=== PATIENT | male | born 1985 | race Caucasian/White ===

== ENCOUNTER 2018-11-09 11:42 | Inpatient (IN) ==
[2018-11-09] MEDS ORDERED: Vancomycin Inj 1,000 MG in Sodium Chlor 0.9% Inj 250 ML IV.SIG ONE (12:54)
[2018-11-09] MEDS ORDERED: Sod Chloride 0.9% Inj 1,000 ML IV.CONT SCH (13:00)
--- NOTE | 2018-11-09 13:03 | ED ---
HPI General Chief complaint: Dental/Oral Stated complaint: PHY sent/Oral infection Time Seen by Provider: 11/09/18 12:40 Source: patient Mode of arrival: ambulatory Limitations: no limitations History of Present Illness HPI Narrative: 33-year-old male complains of pain and swelling on the right side jaw and the right-sided neck. Patient status post wisdom tooth extraction on October [address] Rodriguez. Patient states that he has infection postop. Patient was put on amoxicillin originally and changed to Flagyl and Augmentin. Patient states that he has increasing pain and swelling despite the antibiotic. Patient was seen by oral surgeon and I&D was done with packing in place. Packing was removed this morning however patient had persistent problem with pain swelling on the right-sided neck and right-sided jaw. Patient was advised to go to emergency room to be admitted for IV antibiotic and CT scan of the neck. Patient states that he has intermittent low-grade fever at home. Patient has history of borderline hypertension and hyperlipidemia which is in diet controlled. Patient states that he has trouble swallowing this morning. Patient denies any chest pain or shortness of breath. Onset (ago): day(s) Duration: worsening Severity: moderate Relieving factors: nothing Exacerbating factors: nothing Associated symptoms: Reports fever and pain with swallowing Treatment prior to arrival: Reports other (Oral antibiotic) Related Data Home Medications Medication Instructions Recorded Confirmed No Known Home Medications 11/09/18 11/09/18 Allergies Allergy/AdvReac Type Severity Reaction Status Date / Time No Known Allergies Allergy Verified 11/09/18 11:43 Review of Systems ROS: all other systems reviewed are negative [facility] Medical History Medical History Hydrocele (Acute) Patient denies medical problems (Acute) Surgical History Surgical History H/O inguinal hernia repair (Acute) Social History Social History Substance History: Active Abuse Smoking Status: Never smoker How Often Do You Have a Drink Containing Alcohol: Never Recent Travel in [facility] within the Last 8 Weeks: No Recent Out of Country Travel within the Last 8 Weeks: No Substance Abuse Detail Marijuana: Substance Use Status: Active Route Used Substance Abuse: Inhalation Immunization History Tetanus Immunization: >5 Years Exam Narrative Exam Narrative: GENERAL: Well-nourished, well-developed patient. SKIN: Focused skin assessment warm/dry. HEAD: Normocephalic. EYES: No scleral icterus. No injection or drainage. NECK: Soft tissue swelling tenderness with some drainage from the right-sided neck. Mild soft tissue swelling tenderness of the right angle of the mandible. CARDIOVASCULAR: Regular rate and rhythm without murmurs, gallops, or rubs. RESPIRATORY: Breath sounds equal bilaterally. No accessory muscle use. GASTROINTESTINAL: Abdomen soft, non-tender, nondistended. MUSCULOSKELETAL: No cyanosis, or edema. BACK: Nontender without obvious deformity. No CVA tenderness. Course Initial Documented Vital Signs Temperature 96.5 F L 11/09/18 11:43 Pulse Rate 65 11/09/18 11:43 Respiratory Rate 14 11/09/18 11:43 Blood Pressure 176/81 H 11/09/18 11:43 Pulse Oximetry 97 11/09/18 11:43 Last Documented Vital Signs Temperature 96.5 F L 11/09/18 11:43 Pulse Rate 61 11/09/18 12:04 Respiratory Rate 14 11/09/18 12:04 Blood Pressure 142/91 H 11/09/18 12:04 Pulse Oximetry 96 11/09/18 12:04 Medical Decision Making MDM Narrative Medical decision making narrative: 33-year-old male with drainage and soft tissue swelling tenderness right neck. Status post wisdom tooth removal with subsequent postop infection 2 weeks ago. Vancomycin 1 g IV given. Normal saline solution 125 cc an hour. Medical Screen Exam Complete: Yes Emergency Medical Condition: Yes Lab Data Lab results reviewed: Yes I reviewed the patient's lab results. Result diagrams: 11/09/18 12:55 11/09/18 12:55 Lab Results 11/09/18 11/09/18 11/09/18 Range/Units 12:55 12:55 12:55 WBC 11.8 H (4.0-11.0) th/mm3 RBC 4.78 (4.50-5.90) mil/mm3 Hgb 15.4 (13.0-17.0) gm/dL Hct 44.8 (39.0-51.0) % MCV 93.7 (80.0-100.0) fL MCH 32.3 (27.0-34.0) pg MCHC 34.4 (32.0-36.0) % RDW 12.6 (11.6-17.2) % Plt Count 308 (150-450) th/mm3 MPV 8.3 (7.0-11.0) fL Neut % (Auto) 80.9 H (16.0-70.0) % Lymph % (Auto) 11.7 (9.0-44.0) % Jack % (Auto) 6.0 (0.0-8.0) % Eos % (Auto) 1.0 (0.0-4.0) % Baso % (Auto) 0.4 (0.0-2.0) % Neut # (Auto) 9.6 H (1.8-7.7) th/mm3 Lymph # (Auto) 1.4 (1.0-4.8) th/mm3 Jack # (Auto) 0.7 (0.0-0.9) th/mm3 Eos # (Auto) 0.1 (0.0-0.4) th/mm3 Baso # (Auto) 0.1 (0.0-0.2) th/mm3 WBC Differential . Differential Comment Auto diff final PT 11.7 H (9.8-11.6) sec INR 1.2 Ratio Sodium 138 (136-145) meq/L Potassium 3.3 L (3.5-5.1) meq/L Chloride 103 (98-107) meq/L Carbon Dioxide 28.4 (21.0-32.0) meq/L Anion Gap 7 (5-15) meq/L BUN 9 (7-18) mg/dL Creatinine 0.78 (0.60-1.30) mg/dL Estimated GFR Greater than 89 (>89) mL/min Random Glucose 99 (74-106) mg/dL Lactic Acid (0.4-2.0) mmol/L Calcium 8.6 (8.5-10.1) mg/dL Total Bilirubin 0.8 (0.2-1.0) mg/dL AST 17 (15-37) U/L ALT 24 (12-78) U/L Alkaline Phosphatase 103 (45-117) U/L Total Protein 8.0 (6.4-8.2) g/dL Albumin 4.0 (3.4-5.0) g/dL 12/26/18 Range/Units 12:55 WBC (4.0-11.0) th/mm3 RBC (4.50-5.90) mil/mm3 Hgb (13.0-17.0) gm/dL Hct (39.0-51.0) % MCV (80.0-100.0) fL MCH (27.0-34.0) pg MCHC (32.0-36.0) % RDW (11.6-17.2) % Plt Count (150-450) th/mm3 MPV (7.0-11.0) fL Neut % (Auto) (16.0-70.0) % Lymph % (Auto) (9.0-44.0) % Jack % (Auto) (0.0-8.0) % Eos % (Auto) (0.0-4.0) % Baso % (Auto) (0.0-2.0) % Neut # (Auto) (1.8-7.7) th/mm3 Lymph # (Auto) (1.0-4.8) th/mm3 Jack # (Auto) (0.0-0.9) th/mm3 Eos # (Auto) (0.0-0.4) th/mm3 Baso # (Auto) (0.0-0.2) th/mm3 WBC Differential Differential Comment PT (9.8-11.6) sec INR Ratio Sodium (136-145) meq/L Potassium (3.5-5.1) meq/L Chloride (98-107) meq/L Carbon Dioxide (21.0-32.0) meq/L Anion Gap (5-15) meq/L BUN (7-18) mg/dL Creatinine (0.60-1.30) mg/dL Estimated GFR (>89) mL/min Random Glucose (74-106) mg/dL Lactic Acid 0.8 (0.4-2.0) mmol/L Calcium (8.5-10.1) mg/dL Total Bilirubin (0.2-1.0) mg/dL AST (15-37) U/L ALT (12-78) U/L Alkaline Phosphatase (45-117) U/L Total Protein (6.4-8.2) g/dL Albumin (3.4-5.0) g/dL Imaging Data Attestation: I personally reviewed and interpreted this imaging study as follows : Radiologist's impression: Soft Tissue Neck CT 11/09/18 12:50 CONCLUSION: 1. There is abnormal soft tissue swelling with a focal area of inflammatory tissue suggestive of phlegmon with droplets of air just below the angle of the right mandible consistent with a developing soft tissue abscess. This area measures 2.6 x 2.6 cm. There appears to be a small crack in the posterior cortex of the angle of the mandible on the right side best seen on the sagittal images. Discharge Plan Discharge Disposition Patient Disposition: ED Admit(ED Internal Use Only) Discharge Details Diagnosis: Abscess of neck Physicians Team ED Provider: Deion Clarke Primary Care Provider: Jo Ann Cedeño Rxs /Orders / Referrals /Forms Prescriptions: No Action No Known Home Medications RF: 0 Status ED Status: With Doctor
[2018-11-09 13:08] LABS: Baso # (Auto) 0.1 th/mm3 (0.0-0.2); Baso % (Auto) 0.4 % (0.0-2.0); Eos # (Auto) 0.1 th/mm3 (0.0-0.4); Hematocrit 44.8 % (39.0-51.0); Hemoglobin 15.4 gm/dL (13.0-17.0); Lymph # (Auto) 1.4 th/mm3 (1.0-4.8); Lymph % (Auto) 11.7 % (9.0-44.0); Mean Corpuscular HGB Conc 34.4 % (32.0-36.0); Mean Corpuscular Hemoglobin 32.3 pg (27.0-34.0); Mean Corpuscular Volume 93.7 fL (80.0-100.0); Mean Platelet Volume 8.3 fL (7.0-11.0); Mono # (Auto) 0.7 th/mm3 (0.0-0.9); Neut # (Auto) 9.6 th/mm3 (1.8-7.7); Neut % (Auto) 80.9 % (16.0-70.0); Platelet Count 308 th/mm3 (150-450); Red Blood Count 4.78 mil/mm3 (4.50-5.90); Red Cell Distribution Width 12.6 % (11.6-17.2); White Blood Count 11.8 th/mm3 (4.0-11.0)
[2018-11-09 13:19] LABS: INR 1.2 Ratio; Prothrombin Time 11.7 sec (9.8-11.6)
[2018-11-09 13:25] LABS: Alanine Aminotransferase 24 U/L (12-78); Anion Gap 7 meq/L (5-15); Aspartate Aminotransferase 17 U/L (15-37); Blood Urea Nitrogen 9 mg/dL (7-18); Calcium 8.6 mg/dL (8.5-10.1); Carbon Dioxide 28.4 meq/L (21.0-32.0); Chloride 103 meq/L (98-107); Glomerular Filtration Rate Greater Than 89 mL/min (>89); Glucose,Random 99 mg/dL (74-106); Potassium 3.3 meq/L (3.5-5.1); Sodium 138 meq/L (136-145)
[2018-11-09 13:27] LABS: Alkaline Phosphatase 103 U/L (45-117)
--- NOTE | 2018-11-09 14:12 | CT ---
EXAM DATE: 11/09/2018 2:02 PM EST AGE/SEX: 33 years / Male INDICATIONS: Abscess of neck. Lower wisdom teeth removed. CLINICAL DATA: This is the patient's initial encounter. Patient reports that signs and symptoms have been present for 1 day and indicates a pain score of 8/10. MEDICAL/SURGICAL HISTORY: None. . hernia repair RADIATION DOSE: 11.19 CTDI (mGy) COMPARISON: No prior exams available for comparison. TECHNIQUE: Helical acquisition was performed using a multirow detector CT scanner during the adminis tration of 68 ml Omnipaque 350 (iohexol) nonionic water-soluble contrast as a single exam dose. Usi ng automated exposure control and adjustment of the mA and/or kV according to patient size, radiation dose was kept as low as reasonably achievable to obtain optimal diagnostic quality images. DICOM fo rmat image data is available electronically for review and comparison. FINDINGS: Patient had a lower wisdom tooth removed. On today's examination there is focal soft tissue swelling just inferior to the angle of the mandible on the right side. Along with a focal soft tissue swelling there are several droplets of air within the soft tissues just below the angle of the right mandible . The soft tissue swelling phlegmon measures approximately 2.6 x 2.6 cm. On the sagittal images throu gh the angle of the right mandible there appears to be a small cortical fracture through the posterio r wall of the mandible where it appears the tube is been removed. There is nonspecific edema in the s ubcutaneous soft tissues along the right side of the face. The tonsillar pillars appear to be symmetr ic bilaterally. No definite cervical adenopathy is demonstrated. CONCLUSION: 1. There is abnormal soft tissue swelling with a focal area of inflammatory tissue suggestive of phl egmon with droplets of air just below the angle of the right mandible consistent with a developing so ft tissue abscess. This area measures 2.6 x 2.6 cm. There appears to be a small crack in the posterio r cortex of the angle of the mandible on the right side best seen on the sagittal images. Electronically signed by: Leonardo Yang MD Board Certified Radiologist 11/09/2018 2:11 PM EST
[2018-11-09] MEDS ORDERED: Ampicillin/Sulbactam Inj 3 GM in Sodium Chloride 0.9% Inj 100 ML IV.SIG ONE (14:41)
--- NOTE | 2018-11-09 15:27 | P.HP ---
History of Present Illness Service: [facility] hospitalist service Primary Care Physician: Jo Ann Cedeño MD Chief Complaint: Right submandibular pain and swelling History of Present Illness: Patient is a 33-year-old male with no significant past medical history except for hyperlipidemia on diet who was sent here by oral maxillofacial surgery for right jaw swelling and pain. History of present illness started about 10-12 days ago when patient had wisdom tooth removal on both sides on October 28. Patient was sent home on ibuprofen and hydrocodone with amoxicillin and some oral rinse. 3-4 days later developed low-grade fever. Left side healed well however the right side with persistent swelling and pain. On follow-up with Dr. Rodriguez office I&D done and a drain was placed on the and was started on p.o. Augmentin and Flagyl. 2 days later on follow-up with persistent swelling and this morning on ff up - was sent here for further exploration and possible I &D. Patient states limited oral opening low-grade fever no chills. Past medical history was told that he has hyperlipidemia and was placed on diet. On no meds Social history smokes recreational marijuana. Very occasional alcohol use denies any tobacco use. Family history positive for CAD, and aunt has history of breast cancer. Surgical history bilateral inguinal hernia surgery at 10 years of age. Inpatient Certification: I certify that the inpatient services were ordered in accordance with Medicare regulations governing the order. This includes certification that hospital inpatient services are reasonable and necessary and in the case of services not specified as inpatient-only under 42 CFR 419.22(n), that they are appropriately provided as inpatient services in accordance to with the 2-midnight benchmark under 43 CFR 412.3(e) Estimated Total Length of Stay (Days): 3 Plans for Post Hospital Care: Not yet determined Review of Systems Prior to this episode no history of weight loss no history of chest pain or shortness of breath no history of cough No history of GI bleed melena or hematochezia no urinary symptoms no leg swelling PMFSH - History History Provided By: Patient - Medical History Medical History: Medical History (Last Reviewed 11/09/18 @ 12:59 by Deion Clarke MD) Hydrocele Patient denies medical problems - Surgical History Surgical History: Surgical History (Last Reviewed 11/09/18 @ 12:59 by Deion Clarke MD) H/O inguinal hernia repair - Tobacco History Smoking Status: Never smoker - Alcohol History How Often Do You Have a Drink Containing Alcohol: Never - Substance Use History Substance History: Active Abuse - Substance Use Type Marijuana Status: Active Route Used: Inhalation - Travel History Recent Travel in the [place] Within the Last 8 Weeks: No Recent Travel Out of the Country Within the Last 8 Weeks: No - Immunization History Tetanus Immunization: >5 Years Medications and Allergies Active Medications: Active Medications Sodium Chloride (Ns Inj) 1,000 mls @ 125 mls/hr IV.CONT .Q8H MASHA Last Admin: 11/09/18 13:16 Dose: 125 mls/hr Allergies Allergy/AdvReac Type Severity Reaction Status Date / Time No Known Allergies Allergy Verified 11/09/18 11:43 Exam Vital signs: Vital Signs 11/09/18 11:43 11/09/18 12:04 Temperature 96.5 F L Pulse Rate 65 61 Respiratory Rate 14 14 Blood Pressure 176/81 H 142/91 H Pulse Oximetry 97 96 Narrative: Awake alert oriented x3 not in any distress HEENT exam anicteric sclera Limited oral opening. Exam of the gingiva no swelling or redness. neck was supple Positive right submandibular swelling with slight indurated mass likely an abscess. Lungs no rales no wheezes Regular rhythm Abdomen soft nontender extremities no edema neurologic exam nonfocal Results - Labs CBC & Chem 7: 11/11/18 06:05 11/10/18 03:47 Labs: Laboratory Results - last 24 hr 11/09/18 11/09/18 11/09/18 12:55 12:55 12:55 WBC 11.8 H RBC 4.78 Hgb 15.4 Hct 44.8 MCV 93.7 MCH 32.3 MCHC 34.4 RDW 12.6 Plt Count 308 MPV 8.3 Neut % (Auto) 80.9 H Lymph % (Auto) 11.7 [place] % (Auto) 6.0 Eos % (Auto) 1.0 Baso % (Auto) 0.4 Neut # (Auto) 9.6 H Lymph # (Auto) 1.4 [place] # (Auto) 0.7 Eos # (Auto) 0.1 Baso # (Auto) 0.1 WBC Differential . Differential Comment Auto diff final PT 11.7 H INR 1.2 Sodium 138 Potassium 3.3 L Chloride 103 Carbon Dioxide 28.4 Anion Gap 7 BUN 9 Creatinine 0.78 Estimated GFR Greater than 89 Random Glucose 99 Lactic Acid Calcium 8.6 Total Bilirubin 0.8 AST 17 ALT 24 Alkaline Phosphatase 103 Total Protein 8.0 Albumin 4.0 11/09/18 12:55 WBC RBC Hgb Hct MCV MCH MCHC RDW Plt Count MPV Neut % (Auto) Lymph % (Auto) [place] % (Auto) Eos % (Auto) Baso % (Auto) Neut # (Auto) Lymph # (Auto) [place] # (Auto) Eos # (Auto) Baso # (Auto) WBC Differential Differential Comment PT INR Sodium Potassium Chloride Carbon Dioxide Anion Gap BUN Creatinine Estimated GFR Random Glucose Lactic Acid 0.8 Calcium Total Bilirubin AST ALT Alkaline Phosphatase Total Protein Albumin - Imaging Impressions Soft Tissue Neck CT 11/09/18 12:50 CONCLUSION: 1. There is abnormal soft tissue swelling with a focal area of inflammatory tissue suggestive of phlegmon with droplets of air just below the angle of the right mandible consistent with a developing soft tissue abscess. This area measures 2.6 x 2.6 cm. There appears to be a small crack in the posterior cortex of the angle of the mandible on the right side best seen on the sagittal images. Caprini VTE Risk Assessment Caprini VTE Risk Assessment: No/Low Risk (score <= 1) VTE Pharmacological Exception Reason: Documented (going for surgery) Caprini Risk Assessment Model: Point Value = 1 Point Value = 2 Point Value = 3 Point Value = 5 Age 41-60 Minor surgery BMI > 25 kg/m2 Swollen legs Varicose veins or History of unexplained or recurrent spontaneous Oral contraceptives or hormone replacement Sepsis (< 1 month) Serious lung disease, including pneumonia (< 1 month) Abnormal pulmonary function Acute myocardial infarction Congestive heart failure (< 1 month) History of inflammatory bowel disease Medical patient at bed rest Age 61-74 Arthroscopic surgery Major open surgery (> 45 min) Laparoscopic surgery (> 45 min) Malignancy Confined to bed (> 72 hours) Immobilizing plaster cast Central venous access Age >= 75 History of VTE Family history of VTE Factor V Leiden Prothrombin [id number] Lupus anticoagulant Anticardiolipin antibodies Elevated serum homocysteine Heparin-induced thrombocytopenia Other congenital or acquired thrombophilia Stroke (< 1 month) Elective arthroplasty Hip, pelvis, or leg fracture Acute spinal cord injury (< 1 month) Prophylaxis Regimen: Total Risk Factor Score Risk Level Prophylaxis Regimen 0-1 Low Early ambulation 2 Moderate Order ONE of the following: *Sequential Compression Device (SCD) *Heparin 5000 units SQ BID 3-4 Higher Order ONE of the following medications: *Heparin 5000 units SQ TID *Enoxaparin/Lovenox 40 mg SQ daily (WT < 150 kg, CrCl > 30 mL/min) *Enoxaparin/Lovenox 30 mg SQ daily (WT < 150 kg, CrCl > 10-29 mL/min) *Enoxaparin/Lovenox 30 mg SQ BID (WT < 150 kg, CrCl > 30 mL/min) AND/OR *Sequential Compression Device (SCD) 5 or more Highest Order ONE of the following medications: *Heparin 5000 units SQ TID (Preferred with Epidurals) *Enoxaparin/Lovenox 40 mg SQ daily (WT < 150 kg, CrCl > 30 mL/min) *Enoxaparin/Lovenox 30 mg SQ daily (WT < 150 kg, CrCl > 10-29 mL/min) *Enoxaparin/Lovenox 30 mg SQ BID (WT < 150 kg, CrCl > 30 mL/min) AND *Sequential Compression Device (SCD) Assessment and Plan - Plan 33-year-old male with no significant past medical history presented with Right submandibular abscess status post wisdom tooth removal about 10 days ago. Status post I&D as outpatient 11/05, 11/07- in clinic, failed OP antibiotics - was given IV vancomycin and IV Unasyn one dose here at ER - Oral surgery consult and will take him to surgery this afternoon - Zofran as needed for nausea. - Continue IV Unasyn - PRN pain meds postop IV per oral surgery Hypokalemia on BMP - Incorporate KCL in IVF - BMP in am History of hypertension borderline. Diet controlled. Monitor History of hyperlipidemia per patient diet controlled. TEDs/early ambulation
[2018-11-09] MEDS ORDERED: Metoprolol Tartrate 25 MG Tablet PO ONE (16:45)
[2018-11-09] MEDS ORDERED: Chlorhexidine Gluconate 2% 1 Pack (2 Cloths) TOPICAL ONE (16:45)
--- NOTE | 2018-11-09 16:52 | P.CON ---
History of Present Illness Service: Oral & Maxillofacial Surgery Consult date: 11/09/18 Requesting Physician: Deion Clarke Reason for Consult: Right submandibular abscess Primary Care Provider: Jo Ann Cedeño MD Chief Complaint: Right submandibular pain and swelling History of Present Illness: 33 y/o M with no significant medical history who presents with persistent purulence from #32 extraction site. Third molars were extracted on 10/28/18 and patient developed swelling in the right submandibular region a week later. He underwent multiple incision and drainage procedures in the office setting under local anesthesia and has continued to have persistent pain and purulence from # 32 extraction site. He reports this morning he woke up and had dysphagia and increased swelling from the right mandible. He denied any purulent output from the drains in his right neck. The drains were subsequently removed in the office setting and the patient was noted to have continued purulence in #32 extraction site. He experienced pain on palpation along the inferior mandibular border. He was subsequently referred to the [facility] for a CT of the neck to visualize the location of any further fluid collections with the need for IV antibiotic therapy and likely incision and drainage under general anesthesia. Review of Systems Constitutional: Reports lack of energy, Reports malaise Eyes: Denies change in vision Ears, Nose, Mouth, and Throat: Reports dental pain, Reports difficulty swallowing, Reports facial pain, Reports neck pain, Reports pain with swallowing Cardiovascular: Denies chest pain Respiratory: Denies shortness of breath, Denies wheezing Gastrointestinal: Reports pain with swallowing, Denies abdominal pain Genitourinary: Denies difficulty urinating, Denies painful urination Comments: Dark urine Musculoskeletal: Denies abnormal walking PMFSH - History History Provided By: Patient - Medical History Medical History: Medical History (Last Reviewed 11/09/18 @ 12:59 by Deion Clarke MD) Hydrocele Patient denies medical problems - Surgical History Surgical History: Surgical History (Last Reviewed 11/09/18 @ 12:59 by Deion Clarke MD) H/O inguinal hernia repair - Tobacco History Smoking Status: Never smoker - Alcohol History How Often Do You Have a Drink Containing Alcohol: Never - Substance Use History Substance History: Active Abuse - Substance Use Type Marijuana Status: Active Route Used: Inhalation - Travel History Recent Travel in the [place] Within the Last 8 Weeks: No Recent Travel Out of the Country Within the Last 8 Weeks: No - Immunization History Tetanus Immunization: >5 Years Medications and Allergies Active Medications: Active Medications Potassium Chloride 30 meq/ (Dextrose/Sodium Chloride) 1,015 mls @ 100 mls/hr IV.CONT .Q10H9M [facility] Ampicillin Sodium/Sulbactam (Sodium 3 gm/ Sodium Chloride) 100 mls @ 200 mls/ hr IV.SIG Q6H [facility] Ondansetron HCl (Zofran Inj) 4 mg IV.PUSH Q6H PRN PRN Reason: nausea Last Admin: 11/09/18 16:13 Dose: 4 mg Allergies Allergy/AdvReac Type Severity Reaction Status Date / Time No Known Allergies Allergy Verified 11/09/18 11:43 Home Medications Medication Instructions Recorded Confirmed Type No Known Home Medications 11/09/18 11/09/18 History Physical Exam Vital signs: Vital Signs 11/09/18 11:43 11/09/18 12:04 11/09/18 16:00 Temperature 96.5 F L 99.0 F Pulse Rate 65 61 80 Respiratory Rate 14 14 20 Blood Pressure 176/81 H 142/91 H 130/89 Pulse Oximetry 97 96 100 Intake & Output 11/08/18 11/09/18 11/09/18 18:59 06:59 18:59 Intake Total 450 / 450 Balance 450 / 450 Weight 78.471 kg Intake: IV 450 / 450 NS Inj 1,000 ML @ 125 mls/hr IV 100 / 100 .CONT .Q8H [facility] Rx#:[id number] Unasyn Inj 3 GM In NS Inj 100 100 / 100 ML @ 200 mls/hr IV.SIG ONCE ONE Rx#:[id number] Vancomycin Inj 1,000 MG In NS 250 / 250 Inj 250 ML @ 250 mls/hr IV.SIG ONCE ONE Rx#:[id number] Other: Weight On Admission 78.471 kg Narrative: General: Well-developed, appears uncomfortable. Neurological: Alert and oriented to person, place, and time. HEENT: Head/Face: Mild right submandibular edema, tender to palpation, no overlying erythema of the skin. Multiple incision sites in the right neck. LAURA > 4cm Eyes: EOMI Oral Cavity/Oropharynx: Mucosa pink and well hydrated. Good oral hygiene. Sutures in place in right mandible and dissolving. Floor of mouth soft. Purulence in extraction site #32. Neck: Tenderness to palpation of the right submandibular region Cardiovascular: Regular rate. Pulmonary: Normal work of breathing on room air. Abdomen: Soft, non-tender. Musculoskeletal: No joint tenderness, deformity, effusions. Full range of motion in shoulder, elbow, hip knee, ankle, hands and feet. Extremities: Warm, well perfused. l Results - Labs CBC & Chem 7: 11/09/18 12:55 11/09/18 12:55 Labs: Laboratory Results - last 24 hr 11/09/18 11/09/18 11/09/18 12:55 12:55 12:55 WBC 11.8 H RBC 4.78 Hgb 15.4 Hct 44.8 MCV 93.7 MCH 32.3 MCHC 34.4 RDW 12.6 Plt Count 308 MPV 8.3 Neut % (Auto) 80.9 H Lymph % (Auto) 11.7 [place] % (Auto) 6.0 Eos % (Auto) 1.0 Baso % (Auto) 0.4 Neut # (Auto) 9.6 H Lymph # (Auto) 1.4 [place] # (Auto) 0.7 Eos # (Auto) 0.1 Baso # (Auto) 0.1 WBC Differential . Differential Comment Auto diff final PT 11.7 H INR 1.2 Sodium 138 Potassium 3.3 L Chloride 103 Carbon Dioxide 28.4 Anion Gap 7 BUN 9 Creatinine 0.78 Estimated GFR Greater than 89 Random Glucose 99 Lactic Acid Calcium 8.6 Total Bilirubin 0.8 AST 17 ALT 24 Alkaline Phosphatase 103 Total Protein 8.0 Albumin 4.0 11/09/18 12:55 WBC RBC Hgb Hct MCV MCH MCHC RDW Plt Count MPV Neut % (Auto) Lymph % (Auto) [place] % (Auto) Eos % (Auto) Baso % (Auto) Neut # (Auto) Lymph # (Auto) [place] # (Auto) Eos # (Auto) Baso # (Auto) WBC Differential Differential Comment PT INR Sodium Potassium Chloride Carbon Dioxide Anion Gap BUN Creatinine Estimated GFR Random Glucose Lactic Acid 0.8 Calcium Total Bilirubin AST ALT Alkaline Phosphatase Total Protein Albumin - Imaging Impressions Soft Tissue Neck CT 11/09/18 12:50 CONCLUSION: 1. There is abnormal soft tissue swelling with a focal area of inflammatory tissue suggestive of phlegmon with droplets of air just below the angle of the right mandible consistent with a developing soft tissue abscess. This area measures 2.6 x 2.6 cm. There appears to be a small crack in the posterior cortex of the angle of the mandible on the right side best seen on the sagittal images. Assessment and Plan - Assessment (1) Submandibular abscess Code(s): K12.2 - Cellulitis and abscess of mouth Status: Acute - Plan 30 y/o M with a right submandibular abscess s/p extraction of third molars on . Patient would benefit from incision and drainage of the right submandibular space and continued antibiotic IV therapy. Risks and benefits discussed with patient including pain, swelling, bleeding, nerve/vessel injury, continued infection. Informed consent obtained. Recommendations: - Clear liquid diet after OR - Agree with continuing Unasyn 3g IV every 6 hours - We will plan to follow-up with cultures in OR - We will plan to keep drains in place until no further purulence is appreciated - Daily CBC and CRP - Keep HOB elevated - Pain meds per medicine service Thank you for assisting in the care of this patient. Please do not hesitate to contact me with any questions or concerns at [phone]. Carrington Mcmillan DDS,
[2018-11-09] MEDS ORDERED: Artificial Tears Opth Oint 3.5 GM Tube ONE (16:53)
[2018-11-09] MEDS ORDERED: fentaNYL Citrate Inj 100 MCG/2 ML Ampul ONE (16:59)
[2018-11-09] MEDS ORDERED: Sodium Chlor 0.9% Inj 500 ML IV.SIG SCH (17:00)
[2018-11-09] MEDS ORDERED: Lidocaine 1%/Epinephrine 1:100,000 Inj 50 ML Vial ONE (17:08)
[2018-11-09] MEDS ORDERED: Bupivacaine PF 0.5% Inj 30 ML Vial ONE (17:25)
[2018-11-09] MEDS ORDERED: Bupivacaine/Epinephrine PF Inj 0.5% 30 ML Vial ONE (17:28)
[2018-11-09] MEDS ORDERED: *Meperidine Inj 25 MG/ML Vial PERIprocedural Use ONLY ONE (17:47)
[2018-11-09] MEDS ORDERED: *Ondansetron Inj 4 MG/2 ML Vial PERIprocedural Use ONLY ONE (17:49)
--- NOTE | 2018-11-09 17:56 | P.OP ---
- Preoperative Diagnosis (1) Submandibular abscess - Postoperative Diagnosis (1) Submandibular abscess Date of procedure: 11/09/18 Procedure: -Incision and drainage of right submandibular, right buccal, right strategic partnership specialist spaces Anesthesia: GETA, local Surgeon: Carrington Mcmillan DDS, MD Scleroscope Tester: Tk Kiser Estimated blood loss (mL): 10 IV fluids (mL): 400 Urine output (mL): 0 Pathology: other (Right neck aspirate for gram stain, anaerobic culture, aerobic culture, AFB, fungal and #32 extraction site swab for gram stain, anaerobic culture, aerobic culture, AFB, fungal) Operation and Findings: Operative Findings: 10 ml of purulence noted in the right submandibular space. Indications for Surgery: The patient is a 33 y/o M with no significant past medical history who presents for surgical drainage of a persistent right submandibular abscess. Procedure: The patient was identified in the preoperative holding area and medical history and informed consent were reviewed with the patient and family. All questions were answered. The patient was taken via stretcher to operating room 10 and placed in the supine position on the operating table. Standard lines and monitors were applied. The patient was preoxygenated and general anesthesia was induced via IV. The patient was intubated oroendotracheally without complications. The tube was secured by the Anesthesia team. Bilateral breath sounds and end tidal CO2 were noted. Eyes were taped and lubricated. Both arms were tucked. Extremities were evaluated and found to be in normal range of motion with all pressure points padded. Patient remained on standing antibiotics. A second timeout was performed. The patient was prepped and draped using sterile technique in a usual window shade ring sewer manner. A throat pack was placed and noted. Attention was brought intraorally where copious purulence was expressed from # 32 extraction site. A culture swab was obtained. Attention was then directed towards the right inferior border of the mandible. An 18 gauge needle on a 10cc syringe was used to aspirate the right submandibular space. Approximately 2cc of purulence was obtained. A small 1 centimeter incision in the right neck was made through the cutaneous tissue parallel to and two fingerwidths below the inferior border of the mandible using an existing incision in the right neck from a previous incision and drainage performed 2 days prior. Hemostat was then used to bluntly dissect through the platysma and subcutaneous tissues up to the inferior border of the mandible. Minimal further purulence was expressed. The hemostat was then used to explore the buccal and vestibular spaces along the posterior and anterior lateral body of the mandible. The same procedure was then performed on the medial surface of the right mandible with exploration of the right submandibular , and strategic partnership specialist spaces. Attention was then brought back intraorally. A #15 blade was used to create a sulcular incision around teeth #31 and extending lateral to the extraction site of #32 using the existing incision. A periosteal elevator was used to explore subperiosteally along the buccal aspect of the right mandible. No further purulence was expressed. #32 extraction socket was then gently curetted using a double-ended curette and all granulation tissue was removed. The lingual plate remained stable without evidence of gross mobility. Next, the 60 mL syringe was used to irrigate the right buccal space, submandibular and strategic partnership specialist spaces until no purulence was returned. One quarter inch [place] drain was then placed along the right lateral surface of the mandible and secured with a silk suture. Next, a quarter inch [place] drain was placed along the medial surface of the mandible and advanced into the submandibular space and secured in place with silk suture. The drains were then irrigated with copious amounts of normal saline. The rest of the mouth was examined and the remaining teeth were grossly intact. The oral cavity and oropharynx were irrigated with copious amounts of normal saline and the oropharynx was suctioned. The throat pack was removed under direct visualization and the oropharynx was suctioned. Prep and drapes were removed. The patient was cleansed and dried and turned back to the Anesthesia Care team where he was awakened without event and transferred to the PACU by the Anesthesia Care team for postoperative recovery. Postoperative Care Plan: Patient to return to the care of the medicine service for post-operative wound care and IV antibiotic therapy.
[2018-11-09] MEDS: Potassium Chloride Inj 30 MEQ in Dextrose 5%/NaCl 0.9% Inj 1,000 ML IV.CONT SCH (18:30)
[2018-11-09] MEDS: Ampicillin/Sulbactam Inj 3 GM in Sodium Chloride 0.9% Inj 100 ML IV.SIG SCH (20:10)
[2018-11-10] MEDS: Ampicillin/Sulbactam Inj 3 GM in Sodium Chloride 0.9% Inj 100 ML IV.SIG SCH ×4 (02:27→20:08)
[2018-11-10 04:20] LABS: Baso % (Auto) 0.1 % (0.0-2.0); Hematocrit 43.8 % (39.0-51.0); Lymph # (Auto) 0.9 th/mm3 (1.0-4.8); Lymph % (Auto) 6.4 % (9.0-44.0); Mean Corpuscular HGB Conc 34.3 % (32.0-36.0); Mean Corpuscular Volume 93.3 fL (80.0-100.0); Mean Platelet Volume 7.9 fL (7.0-11.0); Mono # (Auto) 0.7 th/mm3 (0.0-0.9); Mono % (Auto) 4.5 % (0.0-8.0); Neut # (Auto) 13.2 th/mm3 (1.8-7.7); Platelet Count 310 th/mm3 (150-450); Red Blood Count 4.69 mil/mm3 (4.50-5.90); Red Cell Distribution Width 12.9 % (11.6-17.2); White Blood Count 14.8 th/mm3 (4.0-11.0)
[2018-11-10 04:48] LABS: Anion Gap 9 meq/L (5-15); Blood Urea Nitrogen 7 mg/dL (7-18); Calcium 8.4 mg/dL (8.5-10.1); Carbon Dioxide 25.7 meq/L (21.0-32.0); Chloride 105 meq/L (98-107); Glomerular Filtration Rate Greater Than 89 mL/min (>89); Glucose,Random 148 mg/dL (74-106); Potassium 3.9 meq/L (3.5-5.1); Sodium 140 meq/L (136-145)
[2018-11-10] MEDS: Potassium Chloride Inj 30 MEQ in Dextrose 5%/NaCl 0.9% Inj 1,000 ML IV.CONT SCH ×2 (06:06→14:09)
--- NOTE | 2018-11-10 06:54 | P.PN ---
Subjective Interval history: No acute events overnight. Patient tolerating clear liquid diet. Reports some difficulty swallowing and mild sanguinous discharge intraorally when he awoke this morning. Physical Exam Vital signs: Vital Signs 11/09/18 11:43 11/09/18 12:04 11/09/18 16:00 Temperature 96.5 F L 99.0 F Pulse Rate 65 61 80 Respiratory Rate 14 14 20 Blood Pressure 176/81 H 142/91 H 130/89 Pulse Oximetry 97 96 100 11/09/18 17:50 11/09/18 18:00 11/09/18 18:15 Temperature 98.8 F Pulse Rate 112 H 94 H 88 Respiratory Rate 16 16 16 Blood Pressure 128/63 147/78 H 143/70 H Pulse Oximetry 98 95 95 11/09/18 18:30 11/09/18 20:05 11/10/18 00:00 Temperature 98.3 F 98.2 F Pulse Rate 84 83 87 Respiratory Rate 16 18 18 Blood Pressure 150/78 H 139/85 135/77 Pulse Oximetry 95 96 96 Intake & Output 11/09/18 11/09/18 11/10/18 06:59 18:59 06:59 Intake Total 850 / 850 1100 / 1100 Output Total 10 / 10 Balance 840 / 840 1100 / 1100 Weight 78.471 kg 85.281 kg Intake: IV 450 / 450 1100 / 1100 KCl Inj 30 MEQ In D5W/Normal 1000 / 1000 Saline Inj 1,000 ML @ 100 mls/ hr IV.CONT .Q10H9M [facility] Rx#: [id number] NS Inj 1,000 ML @ 125 mls/hr IV 100 / 100 .CONT .Q8H [facility] Rx#:[id number] Unasyn Inj 3 GM In NS Inj 100 100 / 100 100 / 100 ML @ 200 mls/hr IV.SIG Q6H [facility] Rx#:[id number] NS Inj 500 ML @ 30 mls/hr IV. 0 / 0 SIG .Q10H [facility] Rx#:[id number] Vancomycin Inj 1,000 MG In NS 250 / 250 Inj 250 ML @ 250 mls/hr IV.SIG ONCE ONE Rx#:[id number] Anesthesia Amount 400 / 400 Output: Estimated Blood Loss 10 / 10 Other: Weight On Admission 78.471 kg Narrative: General: Well-developed, male, in NAD Neurological: Alert and oriented to person, place, and time. HEENT: Head/Face: Mild right submandibular edema, tender to palpation, no overlying erythema of the skin. Two [place] drains to right neck with minimal sanguinous output. LAURA ~ 3cm Eyes: EOMI Oral Cavity/Oropharynx: Mucosa pink and well hydrated. Good oral hygiene. Sutures in place in right mandible and dissolving. Floor of mouth soft. Sanguinous discharge from extraction site of #32, no tabby purulence appreciated. Neck: Tenderness to palpation of the right submandibular region Cardiovascular: Regular rate. Pulmonary: Normal work of breathing on room air. Abdomen: Soft, non-tender. Musculoskeletal: No joint tenderness, deformity, effusions. Full range of motion in shoulder, elbow, hip knee, ankle, hands and feet. Extremities: Warm, well perfused. l Results - Labs CBC & Chem 7: 11/10/18 03:47 11/10/18 03:47 Laboratory Results - last 24 hr 11/09/18 11/09/18 11/09/18 12:55 12:55 12:55 WBC 11.8 H RBC 4.78 Hgb 15.4 Hct 44.8 MCV 93.7 MCH 32.3 MCHC 34.4 RDW 12.6 Plt Count 308 MPV 8.3 Neut % (Auto) 80.9 H Lymph % (Auto) 11.7 [place] % (Auto) 6.0 Eos % (Auto) 1.0 Baso % (Auto) 0.4 Neut # (Auto) 9.6 H Lymph # (Auto) 1.4 [place] # (Auto) 0.7 Eos # (Auto) 0.1 Baso # (Auto) 0.1 WBC Differential . Differential Comment Auto diff final PT 11.7 H INR 1.2 Sodium 138 Potassium 3.3 L Chloride 103 Carbon Dioxide 28.4 Anion Gap 7 BUN 9 Creatinine 0.78 Estimated GFR Greater than 89 Random Glucose 99 Lactic Acid Calcium 8.6 Total Bilirubin 0.8 AST 17 ALT 24 Alkaline Phosphatase 103 C-Reactive Protein Total Protein 8.0 Albumin 4.0 11/09/18 11/10/18 11/10/18 12:55 03:47 03:47 WBC 14.8 H RBC 4.69 Hgb 15.0 Hct 43.8 MCV 93.3 MCH 32.0 MCHC 34.3 RDW 12.9 Plt Count 310 MPV 7.9 Neut % (Auto) 89.0 H Lymph % (Auto) 6.4 L [place] % (Auto) 4.5 Eos % (Auto) 0.0 Baso % (Auto) 0.1 Neut # (Auto) 13.2 H Lymph # (Auto) 0.9 L [place] # (Auto) 0.7 Eos # (Auto) 0.0 Baso # (Auto) 0.0 WBC Differential . Differential Comment Auto diff final PT INR Sodium 140 Potassium 3.9 Chloride 105 Carbon Dioxide 25.7 Anion Gap 9 BUN 7 Creatinine 0.81 Estimated GFR Greater than 89 Random Glucose 148 H Lactic Acid 0.8 Calcium 8.4 L Total Bilirubin AST ALT Alkaline Phosphatase C-Reactive Protein 2.10 H Total Protein Albumin - Imaging Impressions Soft Tissue Neck CT 11/09/18 12:50 CONCLUSION: 1. There is abnormal soft tissue swelling with a focal area of inflammatory tissue suggestive of phlegmon with droplets of air just below the angle of the right mandible consistent with a developing soft tissue abscess. This area measures 2.6 x 2.6 cm. There appears to be a small crack in the posterior cortex of the angle of the mandible on the right side best seen on the sagittal images. Assessment and Plan - Assessment (1) Submandibular abscess Code(s): K12.2 - Cellulitis and abscess of mouth Status: Acute - Plan 30 y/o M with a right submandibular abscess s/p extraction of third molars on now s/p incision and drainage of a right submandibular space abscess doing well post-operatively. CBC is slightly elevated as expected post- operatively with patient also receiving steroids intraoperatively. CRP slightly elevated as well. Recommendations: - OK to advance to soft diet and would like to have patient tolerate without dysphagia - Irrigate drains twice a day with 60cc of normal saline in each drain - Agree with continuing Unasyn 3g IV every 6 hours and transition to PO Augmentin 875 bid at discharge. Would like to see patient have a few more doses of IV antibiotics prior to discharge. Anticipate discharge later this afternoon pending evaluation or tomorrow morning. - We will plan to follow-up with cultures in OR - We will plan to keep drains in place today - Daily CBC and CRP - Keep HOB elevated - Pain meds per medicine service Thank you for assisting in the care of this patient. Please do not hesitate to contact me with any questions or concerns at [phone]. Carrington Mcmillan DDS, MD
--- NOTE | 2018-11-10 09:00 | P.PNIM ---
Subjective Interval history: Follow-up submandibular abscess. Patient can only tolerate cream of wheat. Does not want to use narcotics pain scale of 4 out of 10 Physical Exam Vital signs: Last Vital Signs Temp 98.1 F 11/10/18 08:00 Pulse 59 L 11/10/18 08:00 Resp 20 11/10/18 08:00 BP 137/79 11/10/18 08:00 Pulse Ox 96 11/10/18 08:00 Intake & Output 11/08/18 11/09/18 11/10/18 11/11/18 06:59 06:59 06:59 06:59 Intake Total 2049 Output Total Balance 2039 - Weight 85.281 kg Narrative: General: Well-developed, male, in NAD Neurological: Alert and oriented to person, place, and time. HEENT: Head/Face: Mild right submandibular edema, tender to palpation, no overlying erythema of the skin. Two [place] drains to right neck with minimal sanguinous output. LAURA ~ 3cm Eyes: EOMI Oral Cavity/Oropharynx: Mucosa pink and well hydrated. Good oral hygiene. Sutures in place in right mandible and dissolving. Floor of mouth soft. Sanguinous discharge from extraction site of #32, no tabby purulence appreciated. Neck: Tenderness to palpation of the right submandibular region Cardiovascular: Regular rate. Pulmonary: Normal work of breathing on room air. Abdomen: Soft, non-tender. Musculoskeletal: No joint tenderness, deformity, effusions. Full range of motion in shoulder, elbow, hip knee, ankle, hands and feet. Extremities: Warm, well perfused. l Results Labs CBC & Chem 7: 11/10/18 03:47 11/10/18 03:47 Labs: Microbiology 11/09/18 17:11 Fluid - Other Gram Stain - Final 11/09/18 17:11 Wound - Other Gram Stain - Final Imaging Imaging: Impressions Soft Tissue Neck CT 11/09/18 12:50 CONCLUSION: 1. There is abnormal soft tissue swelling with a focal area of inflammatory tissue suggestive of phlegmon with droplets of air just below the angle of the right mandible consistent with a developing soft tissue abscess. This area measures 2.6 x 2.6 cm. There appears to be a small crack in the posterior cortex of the angle of the mandible on the right side best seen on the sagittal images. Procedures Procedures: I&D of the right mandibular, buccal abscess Assessment and Plan (1) Submandibular abscess: Code(s): K12.2 - Cellulitis and abscess of mouth Status: Acute Plan 33-year-old male with no significant past medical history presented with Right submandibular abscess status post wisdom tooth removal about 10 days ago. Status post I&D as outpatient 11/05, 11/07- in clinic, failed OP antibiotics - was given IV vancomycin and IV Unasyn one dose here at ER - Oral surgery consult status post I&D continue IV Unasyn - Zofran as needed for nausea. - Refusing narcotics. Tylenol as needed for pain -Soft diet advance as tolerated -Leukocytosis likely reactive Hypokalemia on BMP. Improved - Incorporate KCL in IVF - BMP in am History of hypertension borderline. Diet controlled. Monitor History of hyperlipidemia per patient diet controlled. TEDs/early ambulation Discharge patient to home when cleared by OM FS Condition on discharge: Improved Soft diet as tolerated Ad [place] activity no driving Rx written: Augmentin Follow-up with primary care physician and OM FS
[2018-11-10] MEDS ORDERED: Aluminum/Magnesium/Simethacone Susp 30 ML UDC PO PRN (13:45)
[2018-11-10] MEDS ORDERED: Docusate Sodium 100 MG Capsule PO PRN (13:45)
[2018-11-10] MEDS: Senna/Docusate Sodium 8.6/50 MG Tablet PO SCH ×2 (14:11→20:09)
[2018-11-10] MEDS: Acetaminophen 325 MG Tablet PO PRN (20:09)
[2018-11-11] MEDS: Potassium Chloride Inj 30 MEQ in Dextrose 5%/NaCl 0.9% Inj 1,000 ML IV.CONT SCH ×2 (03:05→14:25)
[2018-11-11] MEDS: Ampicillin/Sulbactam Inj 3 GM in Sodium Chloride 0.9% Inj 100 ML IV.SIG SCH ×3 (03:06→14:28)
[2018-11-11 04:16] VITALS: RESP 16
[2018-11-11 06:48] LABS: Baso % (Auto) 0.5 % (0.0-2.0); Eos # (Auto) 0.1 th/mm3 (0.0-0.4); Eos % (Auto) 0.7 % (0.0-4.0); Hematocrit 39.1 % (39.0-51.0); Hemoglobin 13.7 gm/dL (13.0-17.0); Lymph # (Auto) 2.3 th/mm3 (1.0-4.8); Mean Corpuscular HGB Conc 35.1 % (32.0-36.0); Mean Corpuscular Hemoglobin 32.8 pg (27.0-34.0); Mean Corpuscular Volume 93.2 fL (80.0-100.0); Mean Platelet Volume 8.1 fL (7.0-11.0); Mono # (Auto) 0.7 th/mm3 (0.0-0.9); Mono % (Auto) 8.6 % (0.0-8.0); Neut # (Auto) 5.2 th/mm3 (1.8-7.7); Neut % (Auto) 62.2 % (16.0-70.0); Platelet Count 257 th/mm3 (150-450); Red Blood Count 4.19 mil/mm3 (4.50-5.90); White Blood Count 8.4 th/mm3 (4.0-11.0)
--- NOTE | 2018-11-11 07:58 | P.PN ---
Subjective Interval history: Patient had several episodes of vomiting and nausea overnight. Also reports diarrhea. Difficulty tolerating oatmeal, able to tolerate a few sips of Pepsi. Afebrile. Buccal drain removed this AM on rounds and lingual drain backed out alf. Physical Exam Vital signs: Vital Signs 11/10/18 08:00 11/10/18 11:40 11/10/18 16:00 Temperature 98.1 F 98.0 F 98.1 F Pulse Rate 59 L 64 63 Respiratory Rate 20 20 20 Blood Pressure 137/79 122/73 130/70 Pulse Oximetry 96 97 98 11/10/18 20:00 11/11/18 00:00 11/11/18 04:15 Temperature 98.9 F 98.8 F 98.3 F Pulse Rate 65 79 52 L Respiratory Rate 18 18 16 Blood Pressure 137/76 136/89 134/72 Pulse Oximetry 98 97 98 Intake & Output 11/10/18 11/11/18 11/11/18 18:59 06:59 18:59 Intake Total 1200 / 1200 1200 / 1200 Output Total 8 / 8 Balance 1192 / 1192 1200 / 1200 Weight 85.8 kg Intake: IV 1200 / 1200 1200 / 1200 KCl Inj 30 MEQ In D5W/Normal 1000 / 1000 1000 / 1000 Saline Inj 1,000 ML @ 80 mls/hr IV.CONT .[id number] MASHA Rx#: [id number] Unasyn Inj 3 GM In NS Inj 100 200 / 200 200 / 200 ML @ 200 mls/hr IV.SIG Q6H MASHA Rx#:[id number] Output: Urine 5 / 5 Stool 3 / 3 Other: # Voids 3 Date of Last Bowel Movement 11/10/18 11/09/18 Narrative: General: Well-developed, male, in NAD Neurological: Alert and oriented to person, place, and time. HEENT: Head/Face: Mild right submandibular edema, tender to palpation, no overlying erythema of the skin. Two Belinda drains to right neck with mucinous output. LAURA ~ 2-3cm Eyes: EOMI Oral Cavity/Oropharynx: Mucosa pink and well hydrated. Good oral hygiene. Sutures in place in right mandible and dissolving. Floor of mouth soft. No discharge from extraction site of #32, no tabby purulence appreciated. Uvula slightly deviated to the right. Neck: Tenderness to palpation of the right submandibular region Cardiovascular: Regular rate. Pulmonary: Normal work of breathing on room air. Abdomen: Soft, non-tender. Musculoskeletal: No joint tenderness, deformity, effusions. Full range of motion in shoulder, elbow, hip knee, ankle, hands and feet. Extremities: Warm, well perfused. l Results - Labs CBC & Chem 7: 11/11/18 06:05 11/10/18 03:47 Laboratory Results - last 24 hr 11/11/18 11/11/18 06:05 06:05 WBC 8.4 RBC 4.19 L Hgb 13.7 Hct 39.1 MCV 93.2 MCH 32.8 MCHC 35.1 RDW 13.0 Plt Count 257 MPV 8.1 Neut % (Auto) 62.2 Lymph % (Auto) 28.0 [place]t % (Auto) 8.6 H Eos % (Auto) 0.7 Baso % (Auto) 0.5 Neut # (Auto) 5.2 Lymph # (Auto) 2.3 [place] # (Auto) 0.7 Eos # (Auto) 0.1 Baso # (Auto) 0.0 WBC Differential . Differential Comment Auto diff final C-Reactive Protein 1.80 H Microbiology 11/09/18 17:11 Fluid - Other Fungal Smear - Final No fungal elements seen 11/09/18 17:11 Wound - Other Fungal Smear - Final No fungal elements seen 11/09/18 17:11 Fluid - Other Gram Stain - Final 11/09/18 17:11 Fluid - Other Wound Culture - Preliminary 11/09/18 17:11 Wound - Other Gram Stain - Final 11/09/18 17:11 Wound - Other Wound Culture - Preliminary 11/09/18 12:55 Blood - Peripheral Aerobic Blood Culture - Preliminary No growth in 1 day 11/09/18 12:55 Blood - Peripheral Anaerobic Blood Culture - Preliminary No growth in 1 day 11/09/18 12:55 Blood - Peripheral Aerobic Blood Culture - Preliminary No growth in 1 day 11/09/18 12:55 Blood - Peripheral Anaerobic Blood Culture - Preliminary No growth in 1 day - Procedures I&D of the right submandibular abscess (11/09/18) Assessment and Plan - Assessment (1) Submandibular abscess Code(s): K12.2 - Cellulitis and abscess of mouth Status: Acute - Plan 30 y/o M with a right submandibular abscess s/p extraction of third molars on now s/p incision and drainage of a right submandibular space abscess on 11/09/18. CBC and CRP have decreased from yesterday. Buccal drain removed and lingual drain backed out alf. Overall, improving from an infection standpoint but suspect side effects from antibiotics responsible for N/V and possibly diarrhea, but change in diet may also be responsible for change in bowel habits. Recommendations: - OK to continue soft diet - Continue to irrigate drain twice a day with 60cc of normal saline in each drain - Agree with continuing Unasyn 3g IV every 6 hours and transition to PO Augmentin 875 bid at discharge. Anticipate cleared for discharge later this afternoon from a maxillofacial standpoint but would like to have patient increase PO intake without significant nausea and ideally have diarrhea resolve prior to discharge. - We will plan to follow-up with cultures (Gram positive bacteria at this time) - We will plan to likely remove last remaining drain this afternoon - Daily CBC and CRP - Keep HOB elevated - Pain meds per medicine service Thank you for assisting in the care of this patient. Please do not hesitate to contact me with any questions or concerns at [phone]. Carrington Mcmillan DDS,
[2018-11-11] MEDS: Acetaminophen 325 MG Tablet PO PRN (08:56)
[2018-11-11] MEDS: Senna/Docusate Sodium 8.6/50 MG Tablet PO SCH (08:57)
[2018-11-11 09:13] VITALS: O2SAT 97
[2018-11-11 13:50] VITALS: BP 139/83; PULSE 65; TEMP 97.7
--- NOTE | 2018-11-11 14:44 | P.PNIM ---
Subjective Interval history: Follow-up submandibular abscess. Improved nausea and vomiting. Having loose stools Physical Exam Vital signs: Last Vital Signs Temp 97.7 F 11/11/18 13:19 Pulse 65 11/11/18 13:19 Resp 16 11/11/18 13:19 BP 139/83 11/11/18 13:19 Pulse Ox 97 11/11/18 13:19 Intake & Output 11/09/18 11/10/18 11/11/18 11/12/18 06:59 06:59 06:59 06:59 Intake Total 2049 2400 / 2400 1115 / 1115 Output Total Balance 2039 / 2039 2392 / 2392 1115 / 1115 Weight 85.281 kg 85.8 kg Narrative: General: Well-developed, male, in NAD Neurological: Alert and oriented to person, place, and time. HEENT: Head/Face: Mild right submandibular edema, tender to palpation, no overlying erythema of the skin. Dry dressing over mandibular area Eyes: EOMI Neck: Tenderness to palpation of the right submandibular region Cardiovascular: Regular rate. Pulmonary: Normal work of breathing on room air. Abdomen: Soft, non-tender. Musculoskeletal: No joint tenderness, deformity, effusions. Full range of motion in shoulder, elbow, hip knee, ankle, hands and feet. Extremities: Warm, well perfused. l Results Labs CBC & Chem 7: 11/11/18 06:05 11/10/18 03:47 Labs: Microbiology 11/09/18 12:55 Blood - Peripheral Aerobic Blood Culture - Preliminary No growth in 2 days 11/09/18 12:55 Blood - Peripheral Anaerobic Blood Culture - Preliminary No growth in 2 days 11/09/18 12:55 Blood - Peripheral Aerobic Blood Culture - Preliminary No growth in 2 days 11/09/18 12:55 Blood - Peripheral Anaerobic Blood Culture - Preliminary No growth in 2 days 11/09/18 17:11 Wound - Other Gram Stain - Final 11/09/18 17:11 Wound - Other Wound Culture - Preliminary Beta Streptococcus Group F 11/09/18 17:11 Wound - Other Fungal Smear - Final No fungal elements seen 11/09/18 17:11 Fluid - Other Gram Stain - Final 11/09/18 17:11 Fluid - Other Wound Culture - Preliminary Beta Streptococcus Group F 11/09/18 17:11 Fluid - Other Fungal Smear - Final No fungal elements seen Procedures Procedures: I&D of the right submandibular abscess (11/09/18) Assessment and Plan (1) Submandibular abscess: Code(s): K12.2 - Cellulitis and abscess of mouth Status: Acute Plan 33-year-old male with no significant past medical history presented with Right submandibular abscess status post wisdom tooth removal about 10 days ago. Status post I&D as outpatient 11/05, 11/07- in clinic, failed OP antibiotics - was given IV vancomycin and IV Unasyn one dose here at ER - Oral surgery consult status post I&D continue IV Unasyn - Zofran as needed for nausea. - Refusing narcotics. Tylenol as needed for pain - Soft diet advance as tolerated - Leukocytosis likely reactive, Improving. Also declining CRP Hypokalemia on BMP. Improved - Incorporate KCL in IVF - BMP in am History of hypertension borderline. Diet controlled. Monitor History of hyperlipidemia per patient diet controlled. TEDs/early ambulation Discharge patient to home when cleared by [facility] CONSUELO Condition on discharge: Improved Soft diet as tolerated Ad Salome activity no driving Rx written: AugmentinAnd Zofran Follow-up with primary care physician and BELKIS CORDERO
== END 2018-11-11 19:03 | disposition home or self-care (01) | DRG 138 ==
LOC: NEPE 11:42 → NEDA 14:59 → N05 18:44
PROVIDERS: ADMIT Internal Medicine; ATTEND Internal Medicine
CPT/HCPCS: 70491; 80048; 80053; 83605; 85025; 85610; 86140; 86403; 87015; 87040; 87070; 87102; 87116; 87181; 87185; 87205; 87206; 90765; 90766; 96365; 96366; 99285; J0295; J2175; J2250; J2405; J3010; J3370; J3480; J7030; J7040; J7042; J7050; J7120; Q9967